=== PATIENT | female | born 1960 | race Caucasian/White ===

== ENCOUNTER 2017-04-20 18:51 | Emergency (ER) | payer BC ==
--- NOTE | 2017-04-20 19:43 | EDM.PDOC ---
ED HPI GENERAL MEDICAL PROBLEM - General Chief Complaint: Lower Extremity Injury/Pain Stated Complaint: [facility] Time Seen by Provider: 04/20/17 19:03 Source of Information: Reports: Patient History Limitations: Reports: No Limitations - History of Present Illness INITIAL COMMENTS - FREE TEXT/NARRATIVE: This is a 56-year-old female. Today she [place] ankle and then she fell striking her right hip. After she fell she was unable to stand up or bear weight on that right leg. She comes to the ER complaining of right hip pain. She denies hitting her head she denies any upper extremity injury. The right ankle that she twisted when she fell is not painful or swollen and she denies a left lower extremity injury. She denies any recent illnesses. Right Hip Pain Score (Numeric/FACES): 7 - Related Data Allergies Allergy/AdvReac Type Severity Reaction Status Date / Time aspirin Allergy Cannot Verified 04/20/17 19:03 Remember Home Meds: Home Meds Multivitamin [Daily Vitamin] 1 each PO DAILY #30 tablet 04/26/14 [Rx] Nadolol [Corgard] 20 mg PO DAILY 08/16/16 [History] Antidepressant. 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 History: Reports: Psychiatric History: Reports: Addiction - Past Surgical History Female Surgical History: Reports: Breast Biopsy Musculoskeletal Surgical History: Reports: Other (See Below) Social & Family History - Tobacco Use Smoking Status *Q: Current Every Day Smoker Years of Tobacco use: 40 Packs/Tins Daily: 0.3 Second Hand Smoke Exposure: Yes - Caffeine Use Caffeine Use: Reports: Coffee, Soda - Alcohol Use Days Per Week of Alcohol Use: 7 Number of Drinks Per Day: 4 Total Drinks Per Week: 28 - Recreational Drug Use Recreational Drug Use: No Review of Systems - Review of Systems Review Of Systems: See Below Constitutional: Denies: Chills, Fever Eyes: Reports: No Symptoms Ears: Reports: No Symptoms Nose: Reports: No Symptoms Mouth/Throat: Reports: No Symptoms Respiratory: Reports: No Symptoms Cardiovascular: Reports: No Symptoms GI/Abdominal: Reports: No Symptoms Genitourinary: Reports: No Symptoms Musculoskeletal: Reports: Other (As per history of present illness) Skin: Reports: No Symptoms Neurological: Reports: No Symptoms Psychiatric: Reports: No Symptoms ED EXAM, GENERAL - Physical Exam Exam: See Below Exam Limited By: No Limitations General Appearance: Alert, WD/WN, Mild Distress Eye Exam: Bilateral Eye: Normal Inspection Ears: Normal External Exam Nose: Normal Inspection Throat/Mouth: Normal Lips, Normal Voice Head: Normocephalic Neck: Supple Respiratory/Chest: No Respiratory Distress, Lungs Clear, Normal Breath Sounds Cardiovascular: Regular Rate, Rhythm, No Murmur GI/Abdominal: Soft Back Exam: Other (Patient denies any back tenderness) Extremities: Other (She is tender in the right hip area though does not appear to be grossly deformed, she feels more comfortable with the right leg knee bent and the leg out laterally is where she is comfortable, the right knee ankle and foot without trauma, the lower extremity is without trauma, her pain is centered in the right hip and upper femur region) Neurological: Alert, Oriented Psychiatric: Normal Affect, Normal Mood Skin Exam: Warm, Dry Course - Vital Signs Last Recorded V/S: Last Vital Signs Temp 97.4 F 04/20/17 18:57 Pulse 78 04/20/17 18:57 Resp 18 04/20/17 18:57 BP 134/66 04/20/17 18:57 Pulse Ox 100 04/20/17 18:57 - Orders/Labs/Meds Orders: Active Orders 24 hr Category Date Time Status Insert Hope Catheter [Insert Urinary Catheter] [OM.PC] Care 04/20/17 21:00 Ordered Q24H Urinary Catheter Assessment [RC] ASDIRECTED Care 04/20/17 20:50 Active Hip Min 2V or 3V w Pelvis Rt [CR] Stat Exams 04/20/17 19:15 Taken Meds: Medications Discontinued Medications Generic Name Dose Route Start Last Admin Trade Name Freq PRN Reason Stop Dose Admin Hydromorphone HCl 1 mg 04/20/17 20:04/20/17 20:15 Dilaudid IVPUSH 04/20/17 20:10 1 mg ONETIME ONE Administration Ondansetron HCl 4 mg 04/20/17 20:09 04/20/17 20:13 Zofran IVPUSH 04/20/17 20:10 4 mg ONETIME ONE Administration - Radiology Interpretation Free Text/Narrative:: X-ray of the right hip reveals a femoral neck fracture extending into the intertrochanteric area. - Re-Assessments/Exams Free Text/Narrative Re-Assessment/Exam: 04/20/17 21:19 I spoke to the patient and her significant other regarding the hip fracture. Since we do not have orthopedic coverage this week and we will send her down to [place] and they have chosen [facility] as the hospital they want to be treated at. I did speak to Dr. Funez who is willing to accept the patient in transport for repair of the right hip and also spoke to Dr. Leo who will make her a direct admit to the floor and he will continue her workup with EKG chest x-ray lab work and urinalysis. Departure - Departure Time of Disposition: 21:20 Disposition: DC/Tfer to Acute Hospital 02 Condition: Fair Clinical Impression: Recovering alcoholic, Fracture of neck of femur, hip Closed right hip fracture Qualifiers: Encounter type: initial encounter Qualified Code(s): S72.001A - Fracture of unspecified part of neck of right femur, initial encounter for closed fracture Hypertension Qualifiers: Hypertension type: unspecified Qualified Code(s): I10 - Essential (primary) hypertension Depression Qualifiers: Depression Type: unspecified Qualified Code(s): F32.9 - Major depressive disorder, single episode, unspecified - Discharge Information Forms: ED Department Discharge Additional Instructions: Patient has been accepted by Dr. Leo in transport to [facility] for further evaluation and treatment of her right hip fracture, this is in conjunction with Dr. Funez the retrieval specialist on-call. ED Communication - ED Communication Date/Time Date: 04/20/17 Time Called: 21:20 - Discussed Case With (1) Discussed Case With (1): Admitting Provider Person/s Notified (1): Dr. Leo (Accepts in transport to [facility]) - My Orders Last 24 Hours: My Active Orders 04/20/17 19:15 Hip Min 2V or 3V w Pelvis Rt [CR] Stat 04/20/17 20:50 Urinary Catheter Assessment [RC] ASDIRECTED 04/20/17 21:00 Insert Hope Catheter [Insert Urinary Catheter] [OM.PC] Q24H - Assessment/Plan Last 24 Hours: My Active Orders 04/20/17 19:15 Hip Min 2V or 3V w Pelvis Rt [CR] Stat 04/20/17 20:50 Urinary Catheter Assessment [RC] ASDIRECTED 04/20/17 21:00 Insert Hope Catheter [Insert Urinary Catheter] [OM.PC] Q24H
[2017-04-20] MEDS ORDERED: Ondansetron 4 MG/2 ML SDV IVPUSH ONE (20:09)
[2017-04-20] MEDS ORDERED: HYDROmorphone 1 MG/ML Syringe IVPUSH ONE (20:09)
[2017-04-20] MEDS ORDERED: fentaNYL 100 MCG/2 ML SDV ONE (22:29)
[2017-04-20] MEDS ORDERED: fentaNYL 100 MCG/2 ML SDV IVPUSH STA (22:35)
[2017-04-20 22:59] VITALS: BP 117/64
--- NOTE | 2017-04-22 17:52 | CR ---
Pelvis and right hip: AP view of the pelvis was obtained as well as AP and lateral views of the right hip were obtained. Comparison: Previous pelvis exam of 09/16/12. Acute fracture is identified within the intertrochanteric region/basicervical region of the right hip. Varus angulation is present. Mild joint space narrowing is seen within the right hip. Joint space within the left hip is preserved. Sacroiliac joints are within normal limits. Impression: 1. Mildly angulated right hip fracture as described above. Diagnostic code #3
== END 2017-04-20 22:30 ==
LOC: JD.ED 18:51
DX: S72.001A Fracture of unspecified part of neck of right femur, initial encounter for closed fracture (principal); I10 Essential (primary) hypertension; F32.9 Major depressive disorder, single episode, unspecified; F17.210 Nicotine dependence, cigarettes, uncomplicated; Z79.899 Other long term (current) drug therapy; X50.0XXA Overexertion from strenuous movement or load, initial encounter; W01.10XA Fall on same level from slipping, tripping and stumbling with subsequent striking against unspecified object, initial encounter
CPT/HCPCS: 51702; 73502; 96374; 96375; 99285; J1170; J2405; J3010; 99284

== ENCOUNTER 2019-09-16 20:26 | Emergency (ER) | payer BC ==
[2019-09-16 20:47] VITALS: BP 114/65; PULSE 58
--- NOTE | 2019-09-16 21:07 | EDM.PDOC ---
ED HPI GENERAL MEDICAL PROBLEM - General Chief Complaint: Bite:Animal, Insect Stated Complaint: DOG BIT LEG Time Seen by Provider: 09/16/19 21:07 - History of Present Illness INITIAL COMMENTS - FREE TEXT/NARRATIVE: 58 -year-old female presents the emergency room after dog bite that occurred around 730 this evening. Patient had an unprovoked dog attack where the patient was bitten the back of her left leg in the popliteal fossa area. According to the patient the teeth did not penetrate the pants however she has got skin tears behind this area. They have not been able isolate the dog. The police have been notified. And we were just notified that the police did find the dog animal control did quarantine the dog dog and the index clerk does have documentation of rabies status. Animal control is to contact the patient in the morning. Left Leg Pain Score (Numeric/FACES): 2 - Related Data Allergies Allergy/AdvReac Type Severity Reaction Status Date / Time aspirin Allergy Cannot Verified 09/16/19 20:47 Remember Home Meds: Home Meds Multivitamin [Daily Vitamin] 1 each PO DAILY #30 tablet 04/26/14 [Rx] Nadolol [Corgard] 20 mg PO DAILY 08/16/16 [History] Amoxicillin/Potassium Clav [Augmentin 875-125 Tablet] 1 each PO Q12H #13 tablet 09/16/19 [Rx] Sertraline [Zoloft] 0 mg PO DAILY 09/16/19 [History] Past Medical History HEENT History: Reports: Other (See Below) Other HEENT History: wears glasses Cardiovascular History: Reports: Hypertension Respiratory History: Reports: None Other Gastrointestinal History: advanced cirossis of Liver 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: Musculoskeletal History: Reports: Fracture Neurological History: Reports: None Psychiatric History: Reports: Addiction Endocrine/Metabolic History: Reports: None Hematologic History: Reports: None Immunologic History: Reports: None Oncologic (Cancer) History: Reports: None Dermatologic History: Reports: None - Infectious Disease History Infectious Disease History: Reports: None - Past Surgical History Female Surgical History: Reports: Breast Biopsy Musculoskeletal Surgical History: Reports: Other (See Below) Other Musculoskeletal Surgeries/Procedures:: Right Femur Surgery Social & Family History - Tobacco Use Smoking Status *Q: Current Every Day Smoker Years of Tobacco use: 40 Packs/Tins Daily: 0.2 - Caffeine Use Caffeine Use: Reports: Coffee, Tea - Recreational Drug Use Recreational Drug Use: No ED ROS GENERAL - Review of Systems Review Of Systems: See Below Constitutional: Reports: No Symptoms Respiratory: Reports: No Symptoms Cardiovascular: Reports: No Symptoms GI/Abdominal: Reports: No Symptoms ED EXAM, ANIMAL BITE - Physical Exam Exam: See Below Exam Limited By: No Limitations General Appearance: Alert, No Apparent Distress Respiratory/Chest: No Respiratory Distress, Lungs Clear, Normal Breath Sounds Cardiovascular: Regular Rate, Rhythm, No Edema, No Murmur GI/Abdominal: Normal Bowel Sounds, Soft, Non-Tender Extremities: Other (Her left knee inferior aspect of the popliteal fossa she has some ecchymosis 3 skin tears that are subcutaneous.) Course - Vital Signs Last Recorded V/S: Last Vital Signs Temp 36.8 C 09/16/19 20:44 Pulse 58 L 09/16/19 20:44 Resp 16 09/16/19 20:44 BP 114/65 09/16/19 20:44 Pulse Ox 97 09/16/19 20:44 - Re-Assessments/Exams Free Text/Narrative Re-Assessment/Exam: 09/16/19 21:40 Animal control now has the dog in custody and is in for observation the owners have papers that look like is up-to-date on his immunizations. At this point the patient be started on Augmentin for 7 days and will have her tetanus updated Departure - Departure Time of Disposition: 21:41 Disposition: Home, Self-Care 01 Clinical Impression: Dog bite - Discharge Information Prescriptions: Amoxicillin/Potassium Clav [Augmentin 875-125 Tablet] 1 each PO Q12H #13 tablet Referrals: Nery Nazario MD [Primary Care Provider] - Forms: ED Department Discharge Additional Instructions: Return to the emergency room with any questions problems or worsening symptoms. Keep in touch with animal control. Take the antibiotics until they are all gone Sepsis Event Note - Evaluation Sepsis Screening Result: No Definite Risk - Focused Exam Vital Signs: Vital Signs Temp Pulse Resp BP Pulse Ox 09/16/19 20:44 36.8 C 58 L 16 114/65 97 Date Exam was Performed: 09/16/19 Time Exam was Performed: 21:10
[2019-09-16] MEDS ORDERED: Amoxicillin/Clavulanate K 875-125 MG Tab PO ONE (21:31)
[2019-09-16] MEDS ORDERED: Diphtheria,Pertussis(Acell),Tetanus Vaccine 0.5 ML Syringe IM ONE (21:31)
== END 2019-09-16 21:55 | disposition home or self-care (01) ==
LOC: JD.ED 20:26
DX: S81.052A Open bite, left knee, initial encounter (principal); I10 Essential (primary) hypertension; F17.210 Nicotine dependence, cigarettes, uncomplicated; Z79.899 Other long term (current) drug therapy; Z88.6 Allergy status to analgesic agent; W54.0XXA Bitten by dog, initial encounter
CPT/HCPCS: 90471; 90715; 99283; A9270

== ENCOUNTER 2024-11-08 00:51 | Emergency (ER) | payer BC ==
[2024-11-08] MEDS ORDERED: Sodium Chloride 0.9% 10 ML Syringe FLUSH PRN (01:28)
[2024-11-08 01:37] LABS: BASOPHILS PERCENT AUTO 0.4 % (0.0-1.0); EOSINOPHILS ABSOLUTE AUTO 0.1 K/mm3 (0.0-0.4); EOSINOPHILS PERCENT AUTO 0.7 % (0.0-6.0); HEMATOCRIT 39.1 % (37.0-47.0); HEMOGLOBIN 13.7 gm/dl (12.0-16.0); IMMATURE GRAN ABSOLUTE AUTO 0.03 K/mm3 (0.00-0.05); IMMATURE GRAN PERCENT AUTO 0.4 % (0.0-0.4); LYMPHOCYTES ABSOLUTE AUTO 0.8 K/mm3 (1.0-4.8); LYMPHOCYTES PERCENT AUTO 11.3 % (24.0-44.0); MEAN CORPUSCULAR HEMOGLOBIN 31.6 pg (28.0-32.0); MEAN CORPUSCULAR VOLUME 90.1 fl (83.0-99.0); MEAN PLATELET VOLUME 10.1 fl (9.4-12.3); MONOCYTES ABSOLUTE AUTO 0.2 K/mm3 (0.0-0.8); MONOCYTES PERCENT AUTO 2.9 % (0.0-8.0); NEUTROPHILS ABSOLUTE AUTO 5.7 K/mm3 (1.8-7.7); NEUTROPHILS PERCENT AUTO 84.3 % (41.0-71.0); PLATELET COUNT,PLT 97 K/mm3 (150-400); RED BLOOD CELL COUNT 4.34 M/mm3 (4.10-5.30); WHITE BLOOD CELL COUNT,WBC 6.82 K/mm3 (3.9-11.3)
[2024-11-08] MEDS: HYDROmorphone 0.5 MG/0.5 ML Syringe IVPUSH ONE (01:41)
[2024-11-08] MEDS: Ketorolac 30 MG/ML SDV IVPUSH ONE (01:42)
[2024-11-08 01:45] LABS: A/G RATIO 0.9 (1-2); ALBUMIN 3.3 g/dl (3.4-5.0); ANION GAP 12.9 (5-15); BILIRUBIN TOTAL 1.1 mg/dL (0.2-1.0); C-REACTIVE PROTEIN 2.21 mg/dL (<0.30); CALCIUM 8.9 mg/dL (8.5-10.1); EST CRCL DRUG DOSING (CG) 47.63 mL/min; POTASSIUM,K 3.9 mEq/L (3.5-5.1); PROTEIN TOTAL,TP 6.8 g/dl (6.4-8.2)
[2024-11-08 02:11] LABS: SLIDE REVIEW ABNORMAL SMEAR
[2024-11-08] MEDS: valACYclovir 1,000 MG Tab PO ONE (03:23)
[2024-11-08 03:41] VITALS: BP 115/57; PULSE 92
== END 2024-11-08 03:39 | disposition home or self-care (01) ==
LOC: JD.ED 00:51
DX: B02.8 Zoster with other complications (principal); I10 Essential (primary) hypertension; F17.210 Nicotine dependence, cigarettes, uncomplicated; Z88.6 Allergy status to analgesic agent; Z79.899 Other long term (current) drug therapy; Z86.16 Personal history of COVID-19
CPT/HCPCS: 36415; 70450; 80053; 85025; 86140; 87428; 87651; 96374; 96375; 99284; A9270; J1885

== ENCOUNTER 2024-11-09 13:08 | Inpatient (IN) | payer BC ==
[2024-11-09] MEDS: Acetaminophen 325 MG Tab PO ONE (13:49)
[2024-11-09] MEDS: Sodium Chloride 0.9% 2,000 ML IV ONE (13:49)
[2024-11-09] MEDS: Piperacillin/Tazobactam 4.5 GM in Sodium Chloride 0.9% 100 ML IV ONE (13:50)
[2024-11-09] MEDS: Acetaminophen 325 MG/10.15 ML PO ONE (14:06)
[2024-11-09 14:27] LABS: BASOPHILS ABSOLUTE AUTO 0.1 K/mm3 (0.0-0.2); BASOPHILS PERCENT AUTO 1.4 % (0.0-1.0); HEMATOCRIT 41.9 % (37.0-47.0); HEMOGLOBIN 14.7 gm/dl (12.0-16.0); IMMATURE GRAN ABSOLUTE AUTO 0.01 K/mm3 (0.00-0.05); IMMATURE GRAN PERCENT AUTO 0.3 % (0.0-0.4); LYMPHOCYTES ABSOLUTE AUTO 0.3 K/mm3 (1.0-4.8); LYMPHOCYTES PERCENT AUTO 9.4 % (24.0-44.0); MEAN CORPUSCULAR HEMOGLOBIN 31.7 pg (28.0-32.0); MEAN CORPUSCULAR HGB CONC 35.1 g/dl (32.0-36.0); MEAN CORPUSCULAR VOLUME 90.3 fl (83.0-99.0); MEAN PLATELET VOLUME 9.9 fl (9.4-12.3); MONOCYTES ABSOLUTE AUTO 0.1 K/mm3 (0.0-0.8); MONOCYTES PERCENT AUTO 1.4 % (0.0-8.0); NEUTROPHILS ABSOLUTE AUTO 3.1 K/mm3 (1.8-7.7); NEUTROPHILS PERCENT AUTO 87.5 % (41.0-71.0); PLATELET COUNT,PLT 58 K/mm3 (150-400); RED BLOOD CELL COUNT 4.64 M/mm3 (4.10-5.30); WHITE BLOOD CELL COUNT,WBC 3.52 K/mm3 (3.9-11.3)
[2024-11-09 14:53] LABS: ALBUMIN 2.6 g/dl (3.4-5.0); BILIRUBIN TOTAL 1.4 mg/dL (0.2-1.0); CREATININE 1.8 mg/dL (0.55-1.02); EST CRCL DRUG DOSING (CG) 26.46 mL/min; MAGNESIUM 1.2 mg/dL (1.8-2.4); POTASSIUM,K 4.1 mEq/L (3.5-5.1)
[2024-11-09 14:54] LABS: INR 1.71; PROTHROMBIN TIME 17.5 SECONDS (9.7-12.0)
[2024-11-09 15:16] LABS: A/G RATIO 0.7 (1-2); ANION GAP 18.1 (5-15); BUN/CREATININE RATIO 22.8 (14-18); C-REACTIVE PROTEIN 22.5 mg/dL (<0.30); CALCIUM 8.3 mg/dL (8.5-10.1); PROTEIN TOTAL,TP 6.4 g/dl (6.4-8.2)
[2024-11-09 16:43] LABS: APPEARANCE,URINE CLEAR (Clear); BILIRUBIN,URINE NEGATIVE (Negative); COLOR,URINE YELLOW (Yellow); GLUCOSE,URINE NEGATIVE (Negative); KETONES,URINE NEGATIVE (Negative); LEUKOCYTE ESTERASE,URINE NEGATIVE (Negative); NITRITE,URINE NEGATIVE (Negative); OCCULT BLOOD,URINE TRACE-LYSED (Negative); PROTEIN,URINE 1+ (Negative); UROBILINOGEN,URINE 0.2 (0.2-1.0)
[2024-11-09 17:00] LABS: BARBITURATE SCREEN,URINE NEGATIVE (CUTOFF=200); BENZODIAZEPINES SCREEN,URINE NEGATIVE (CUTOFF=150); BUPRENORPHINE SCREEN,URINE NEGATIVE (CUTOFF=10); METHADONE SCREEN, URINE NEGATIVE (CUTOFF=200); METHAMPHETAMINES SCREEN, URINE NEGATIVE (CUTOFF=500); OXYCODONE SCREEN,URINE NEGATIVE (CUT0FF=100); THC SCREEN,URINE 20 NG/ML NEGATIVE (CUTOFF=50)
[2024-11-09 17:03] LABS: BACTERIA,URINE MODERATE /hpf (FEW); MUCUS,URINE FEW /hpf (FEW); RBC,URINE 0-5 /hpf (0-5); WBC,URINE 0-5 /hpf (0-5)
[2024-11-09 17:04] LABS: AMPHETAMINES SCREEN, URINE NEGATIVE (CUTOFF=500)
[2024-11-09 17:59] LABS: LACTIC ACID 3.5 mmol/L (0.4-2.0)
[2024-11-09 19:12] LABS: PROTEIN,CSF 20.5 mg/dl (15-45)
[2024-11-09 19:13] LABS: APPEARANCE CSF CLEAR (CLEAR); COLOR,CSF COLORLESS; SUPERNATANT APPEAR,CSF NO XANTHOCHROMIA; TUBE NUMBER,CSF 2; TUBE VOLUME,CSF 2 ml
[2024-11-09] MEDS: Sodium Chloride 0.9% 1,000 ML IV SCH ×2 (19:13→22:46)
[2024-11-09 19:27] LABS: RBC,CSF 4 cells/uL (0-0); WBC,CSF 5 cells/uL (0-5)
[2024-11-09] MEDS: cefTRIAXone 1 GM Vial IVPUSH ONE (21:24)
[2024-11-09] MEDS: Azithromycin 500 MG in Sodium Chloride 0.9% 250 ML IV ONE (21:24)
[2024-11-09] MEDS ORDERED: Sodium Chloride 0.9% 1,000 ML IV SCH (23:25)
[2024-11-10] MEDS: Acetaminophen 325 MG Tab PO PRN (05:15)
[2024-11-10] MEDS: Metoprolol Tartrate 5 MG/5 ML SDV IVPUSH ONE (05:18)
[2024-11-10 08:13] LABS: BASOPHILS ABSOLUTE AUTO 0.1 K/mm3 (0.0-0.2); BASOPHILS PERCENT AUTO 1.6 % (0.0-1.0); EOSINOPHILS PERCENT AUTO 0.2 % (0.0-6.0); HEMATOCRIT 36.8 % (37.0-47.0); HEMOGLOBIN 12.8 gm/dl (12.0-16.0); IMMATURE GRAN ABSOLUTE AUTO 0.09 K/mm3 (0.00-0.05); IMMATURE GRAN PERCENT AUTO 1.6 % (0.0-0.4); LYMPHOCYTES ABSOLUTE AUTO 0.4 K/mm3 (1.0-4.8); LYMPHOCYTES PERCENT AUTO 6.1 % (24.0-44.0); MEAN CORPUSCULAR HEMOGLOBIN 31.4 pg (28.0-32.0); MEAN CORPUSCULAR HGB CONC 34.8 g/dl (32.0-36.0); MEAN CORPUSCULAR VOLUME 90.4 fl (83.0-99.0); MEAN PLATELET VOLUME 11.2 fl (9.4-12.3); MONOCYTES ABSOLUTE AUTO 0.1 K/mm3 (0.0-0.8); MONOCYTES PERCENT AUTO 1.8 % (0.0-8.0); NEUTROPHILS ABSOLUTE AUTO 5.1 K/mm3 (1.8-7.7); NEUTROPHILS PERCENT AUTO 88.7 % (41.0-71.0); PLATELET COUNT,PLT 49 K/mm3 (150-400); RED BLOOD CELL COUNT 4.07 M/mm3 (4.10-5.30); WHITE BLOOD CELL COUNT,WBC 5.71 K/mm3 (3.9-11.3)
[2024-11-10 08:24] LABS: A/G RATIO 0.7 (1-2); ANION GAP 17.7 (5-15); BILIRUBIN TOTAL 1.4 mg/dL (0.2-1.0); BUN/CREATININE RATIO 23.1 (14-18); C-REACTIVE PROTEIN 21.99 mg/dL (<0.30); CALCIUM 7.9 mg/dL (8.5-10.1); CREATININE 1.3 mg/dL (0.55-1.02); EST CRCL DRUG DOSING (CG) 36.64 mL/min; POTASSIUM,K 3.7 mEq/L (3.5-5.1); PROTEIN TOTAL,TP 5.1 g/dl (6.4-8.2)
[2024-11-10] MEDS ORDERED: LORazepam 2 MG/ML SDV IV PRN ×2 (09:11)
[2024-11-10] MEDS ORDERED: Metoprolol Tartrate 5 MG/5 ML SDV IVPUSH PRN (09:13)
[2024-11-10] MEDS ORDERED: Folic Acid 50 MG/10 ML MDV IV SCH (09:15)
[2024-11-10] MEDS ORDERED: Thiamine 200 MG/2 ML MDV IVPUSH SCH (09:15)
[2024-11-10] MEDS: Metoprolol Tartrate 5 MG in Sodium Chloride 0.9% 50 ML IV ONE (09:19)
[2024-11-10] MEDS: Metoprolol Tartrate 5 MG/5 ML SDV IV ONE (09:26)
[2024-11-10 09:54] LABS: SLIDE REVIEW ABNORMAL SMEAR
[2024-11-10] MEDS: Sodium Chloride 0.9% 1,000 ML IV SCH (11:13)
[2024-11-10] MEDS: Magnesium Sulf/Wat 4 GM/50 mL 4 GM in Premix Bag 1 BAG IV ONE (13:45)
[2024-11-10] MEDS: oxyCODONE 5 MG Tab PO PRN (19:58)
[2024-11-10] MEDS ORDERED: Azithromycin 500 MG in Sodium Chloride 0.9% 250 ML IV SCH (20:00)
[2024-11-10] MEDS: cefTRIAXone 1 GM Vial IVPUSH SCH (20:08)
[2024-11-10] MEDS: Doxycycline 100 MG in Sodium Chloride 0.9% 100 ML IV SCH (20:21)
[2024-11-10] MEDS: Metoprolol Tartrate 25 MG Tab PO SCH (20:24)
[2024-11-11 04:52] LABS: CORONAVIRUS COVID-19 NAA NEGATIVE (NEGATIVE); INFLUENZA A NAA NEGATIVE (NEGATIVE); RESPIRATORY SYNCYTIAL VIR NAA NEGATIVE (NEGATIVE)
[2024-11-11] MEDS: Pantoprazole 40 MG Tab.CR PO SCH (06:08)
[2024-11-11] MEDS: Multivitamin Tab PO SCH (08:20)
[2024-11-11] MEDS: Albuterol/Ipratropium 3.0-0.5 MG/3 ML Neb Soln NEB PRN (09:30)
[2024-11-11 10:31] LABS: BASOPHILS PERCENT AUTO 0.5 % (0.0-1.0); EOSINOPHILS PERCENT AUTO 0.4 % (0.0-6.0); HEMATOCRIT 35.4 % (37.0-47.0); HEMOGLOBIN 12.4 gm/dl (12.0-16.0); IMMATURE GRAN PERCENT AUTO 1.2 % (0.0-0.4); LYMPHOCYTES ABSOLUTE AUTO 0.8 K/mm3 (1.0-4.8); MEAN CORPUSCULAR HEMOGLOBIN 31.5 pg (28.0-32.0); MEAN CORPUSCULAR VOLUME 89.8 fl (83.0-99.0); MEAN PLATELET VOLUME 10.4 fl (9.4-12.3); MONOCYTES ABSOLUTE AUTO 0.2 K/mm3 (0.0-0.8); MONOCYTES PERCENT AUTO 2.3 % (0.0-8.0); NEUTROPHILS PERCENT AUTO 85.6 % (41.0-71.0); PLATELET COUNT,PLT 46 K/mm3 (150-400); RED BLOOD CELL COUNT 3.94 M/mm3 (4.10-5.30); WHITE BLOOD CELL COUNT,WBC 8.18 K/mm3 (3.9-11.3)
[2024-11-11 13:00] LABS: SLIDE REVIEW ABNORMAL SMEAR
[2024-11-11 13:10] LABS: A/G RATIO 0.5 (1-2); ALBUMIN 1.6 g/dl (3.4-5.0); ANION GAP 11.5 (5-15); BILIRUBIN TOTAL 1.4 mg/dL (0.2-1.0); BUN/CREATININE RATIO 26.3 (14-18); CALCIUM 8.5 mg/dL (8.5-10.1); CREATININE 0.8 mg/dL (0.55-1.02); EST CRCL DRUG DOSING (CG) 59.54 mL/min; MAGNESIUM 1.5 mg/dL (1.8-2.4); POTASSIUM,K 3.5 mEq/L (3.5-5.1); PROTEIN TOTAL,TP 4.6 g/dl (6.4-8.2)
[2024-11-11] MEDS: Magnesium Sulf/Wat 4 GM/50 mL 4 GM in Premix Bag 1 BAG IV ONE (22:16)
[2024-11-12] MEDS: Benzocaine/Cetylpyridinium/Menthol Lozenge MUCMEM PRN (01:50)
[2024-11-12 05:02] LABS: A/G RATIO 0.5 (1-2); ALBUMIN 1.5 g/dl (3.4-5.0); BILIRUBIN TOTAL 1.9 mg/dL (0.2-1.0); BUN/CREATININE RATIO 28.6 (14-18); C-REACTIVE PROTEIN 11.21 mg/dL (<0.30); CALCIUM 8.3 mg/dL (8.5-10.1); CREATININE 0.7 mg/dL (0.55-1.02); EST CRCL DRUG DOSING (CG) 68.05 mL/min; PROTEIN TOTAL,TP 4.4 g/dl (6.4-8.2)
[2024-11-12 05:07] LABS: ANION GAP 14.8 (5-15)
[2024-11-12 05:41] LABS: POTASSIUM,K 3.8 mEq/L (3.5-5.1)
[2024-11-12 05:42] LABS: BASOPHILS PERCENT AUTO 0.4 % (0.0-1.0); EOSINOPHILS ABSOLUTE AUTO 0.1 K/mm3 (0.0-0.4); EOSINOPHILS PERCENT AUTO 1.1 % (0.0-6.0); HEMATOCRIT 34.1 % (37.0-47.0); HEMOGLOBIN 12.2 gm/dl (12.0-16.0); IMMATURE GRAN ABSOLUTE AUTO 0.14 K/mm3 (0.00-0.05); IMMATURE GRAN PERCENT AUTO 1.8 % (0.0-0.4); LYMPHOCYTES ABSOLUTE AUTO 1.1 K/mm3 (1.0-4.8); LYMPHOCYTES PERCENT AUTO 13.5 % (24.0-44.0); MEAN CORPUSCULAR HEMOGLOBIN 31.4 pg (28.0-32.0); MEAN CORPUSCULAR HGB CONC 35.8 g/dl (32.0-36.0); MEAN CORPUSCULAR VOLUME 87.9 fl (83.0-99.0); MEAN PLATELET VOLUME 10.7 fl (9.4-12.3); MONOCYTES ABSOLUTE AUTO 0.3 K/mm3 (0.0-0.8); NEUTROPHILS ABSOLUTE AUTO 6.3 K/mm3 (1.8-7.7); NEUTROPHILS PERCENT AUTO 79.2 % (41.0-71.0); PLATELET COUNT,PLT 43 K/mm3 (150-400); RED BLOOD CELL COUNT 3.88 M/mm3 (4.10-5.30); WHITE BLOOD CELL COUNT,WBC 7.93 K/mm3 (3.9-11.3)
[2024-11-12 06:44] LABS: SLIDE REVIEW ABNORMAL SMEAR
[2024-11-12 09:51] LABS: MAGNESIUM 2.4 mg/dL (1.8-2.4); PHOSPHORUS 1.6 mg/dL (2.6-4.7)
[2024-11-12] MEDS: Doxycycline Monohydrate 100 MG Cap PO SCH (13:28)
[2024-11-12] MEDS: Phosphorus #1 250 MG Tab PO SCH (13:29)
[2024-11-12] MEDS: Amoxicillin/Clavulanate K 875-125 MG Tab PO SCH (19:44)
[2024-11-13 05:30] LABS: BASOPHILS ABSOLUTE AUTO 0.1 K/mm3 (0.0-0.2); BASOPHILS PERCENT AUTO 0.9 % (0.0-1.0); EOSINOPHILS ABSOLUTE AUTO 0.1 K/mm3 (0.0-0.4); EOSINOPHILS PERCENT AUTO 1.7 % (0.0-6.0); HEMATOCRIT 31.8 % (37.0-47.0); HEMOGLOBIN 11.5 gm/dl (12.0-16.0); IMMATURE GRAN ABSOLUTE AUTO 0.26 K/mm3 (0.00-0.05); IMMATURE GRAN PERCENT AUTO 3.5 % (0.0-0.4); LYMPHOCYTES ABSOLUTE AUTO 1.2 K/mm3 (1.0-4.8); LYMPHOCYTES PERCENT AUTO 15.8 % (24.0-44.0); MEAN CORPUSCULAR HEMOGLOBIN 31.2 pg (28.0-32.0); MEAN CORPUSCULAR HGB CONC 36.2 g/dl (32.0-36.0); MEAN CORPUSCULAR VOLUME 86.2 fl (83.0-99.0); MEAN PLATELET VOLUME 11.6 fl (9.4-12.3); MONOCYTES ABSOLUTE AUTO 0.4 K/mm3 (0.0-0.8); MONOCYTES PERCENT AUTO 5.6 % (0.0-8.0); NEUTROPHILS ABSOLUTE AUTO 5.4 K/mm3 (1.8-7.7); NEUTROPHILS PERCENT AUTO 72.5 % (41.0-71.0); PLATELET COUNT,PLT 58 K/mm3 (150-400); RED BLOOD CELL COUNT 3.69 M/mm3 (4.10-5.30); WHITE BLOOD CELL COUNT,WBC 7.51 K/mm3 (3.9-11.3)
[2024-11-13 05:31] LABS: A/G RATIO 0.4 (1-2); ALBUMIN 1.4 g/dl (3.4-5.0); BUN/CREATININE RATIO 21.4 (14-18); C-REACTIVE PROTEIN 9.09 mg/dL (<0.30); CALCIUM 8.2 mg/dL (8.5-10.1); CREATININE 0.7 mg/dL (0.55-1.02); EST CRCL DRUG DOSING (CG) 68.05 mL/min; PROTEIN TOTAL,TP 4.7 g/dl (6.4-8.2)
[2024-11-13 06:36] LABS: SLIDE REVIEW ABNORMAL SMEAR
[2024-11-13] MEDS: Potassium Chloride 20 MEQ Tab.ER PO ONE (09:06)
[2024-11-13 12:24] VITALS: BP 107/65; PULSE 71
[2024-11-14 22:42] LABS: NOROVIRUS 1 BY PCR Inhibited; NOROVIRUS 2 BY PCR Inhibited
== END 2024-11-13 12:05 | disposition home or self-care (01) | DRG 720 ==
LOC: JD.ED 13:08 → JD.MS 20:07
PROVIDERS: ADMIT Family Medicine; ATTEND Family Medicine
DX: A41.9 Sepsis, unspecified organism (principal); R65.20 Severe sepsis without septic shock; J96.01 Acute respiratory failure with hypoxia; J18.9 Pneumonia, unspecified organism; K70.30 Alcoholic cirrhosis of liver without ascites; H54.7 Unspecified visual loss; I10 Essential (primary) hypertension; E86.0 Dehydration; I95.89 Other hypotension; R16.1 Splenomegaly, not elsewhere classified; E83.39 Other disorders of phosphorus metabolism; G93.40 Encephalopathy, unspecified; K76.6 Portal hypertension; F41.9 Anxiety disorder, unspecified; E83.42 Hypomagnesemia; F32.A Depression, unspecified; Z98.890 Other specified postprocedural states; Z96.649 Presence of unspecified artificial hip joint; Z88.8 Allergy status to other drugs, medicaments and biological substances; Z79.899 Other long term (current) drug therapy; Z72.0 Tobacco use
CPT/HCPCS: 0241U; 36415; 70450; 70450-26; 70490; 70490-26; 71250; 71250-26; 74176; 74176-26; 80053; 80306; 81001; 82140; 82550; 82945; 83605; 83690; 83735; 83880; 84100; 84157; 84484; 85025; 85610; 85652; 86140; 87040; 87045; 87046; 87070; 87205; 87428-QW; 87483; 87493; 87641; 87651; 87798; 87899; 89050; 93005; 93010; 94640; 94667; 94668; 94761; 94762; 96361; 96365; 97116-GP; 97162-GP; 99285; 99285-25; A9270-GY; J0456; J0696; J2543; J3475; J3490; J7030